=== PATIENT | male | born 2000 ===

== ENCOUNTER 2022-03-14 19:09 | Emergency (ER) | payer SELFPAY ==
[2022-03-14 20:42] VITALS: BP 131/73
[2022-03-15] MEDS ORDERED: LIDOCAINE-MPF (1%) 10 MG/1 ML VIAL 5 ML INFILTRATI ONE (01:33)
[2022-03-15] MEDS ORDERED: TETANUS,DIPH,PERTUSS(ACELL) VACCINE 0.5 ML SYRINGE IM ONE (01:33)
[2022-03-15] MEDS ORDERED: HYDROcodone/ACETAMINOPHEN 5-325 MG TAB PO ONE (01:33)
[2022-03-15] MEDS ORDERED: cephALEXin 500 MG CAP PO ONE (01:33)
--- NOTE | 2022-03-15 01:40 | Emergency Department Report ---
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 There is no gross deformity bleeding was controlled by direct pressure self applied. Incident happened approximately 6 hours ago. Patient states his thumb was caught in metal storage cabinet door as it was slammed closed. Patient complains of 7/10 pain and throbbing. Pain is exacerbated by palpation and movement. Pain is relieved by nothing tried. Last tetanus is unknown. Patient arrived to ED via POV patient is alert oriented and amatory with steady gait there is no acute distress. - Related Data Previous Rx's Medication Instructions Recorded Last Taken Type HYDROcodone/APAP 5-325 [[place] 1 each PO Q6HR PRN #12 tablet 03/15/22 Unknown Rx 5-325 mg TAB] cephALEXin [Keflex] 500 mg PO Q8HR 7 Days #21 cap 03/15/22 Unknown Rx Allergies Allergy/AdvReac Type Severity Reaction Status Date / Time No Known Allergies Allergy Verified 03/14/22 20:44 ED Review of Systems ROS: Stated complaint: LT THUMB CUT Other details as noted in HPI Constitutional: denies: chills, fever Eyes: denies: eye pain, eye discharge, vision change ENT: denies: ear pain, throat pain Respiratory: denies: cough, shortness of breath, wheezing Cardiovascular: denies: chest pain, palpitations Endocrine: no symptoms reported Gastrointestinal: denies: abdominal pain, nausea, diarrhea Genitourinary: denies: urgency, dysuria Musculoskeletal: other (Left distal thumb laceration) Skin: other (Distal thumb laceration as above). denies: rash, lesions Neurological: denies: headache, weakness, paresthesias Psychiatric: denies: anxiety, depression Hematological/Lymphatic: denies: easy bleeding, easy bruising ED Past Medical Hx - Medications Home Medications: Home Medications Medication Instructions Recorded Confirmed Last Taken Type HYDROcodone/APAP 5-325 [[place] 1 each PO Q6HR PRN #12 tablet 03/15/22 Unknown Rx 5-325 mg TAB] cephALEXin [Keflex] 500 mg PO Q8HR 7 Days #21 cap 03/15/22 Unknown Rx ED Physical Exam - General Limitations: No Limitations General appearance: alert, in no apparent distress - Head Head exam: Present: normocephalic, normal inspection - Eye Eye exam: Present: PERRL, EOMI Pupils: Present: normal accommodation - ENT ENT exam: Present: mucous membranes moist - Neck Neck exam: Present: normal inspection, full ROM. Absent: tenderness - Respiratory Respiratory exam: Present: normal lung sounds bilaterally. Absent: respiratory distress, wheezes - Cardiovascular Cardiovascular Exam: Present: regular rate, normal rhythm. Absent: systolic murmur, diastolic murmur, rubs, gallop - GI/Abdominal GI/Abdominal exam: Present: soft, normal bowel sounds - Rectal Rectal exam: Present: deferred - Extremities Exam Extremities exam: Present: full ROM, normal capillary refill - Expanded Upper Extremity Exam Left Hand Wrist exam: Present: full ROM, tenderness, laceration (Left distal thumb laceration approximately 2 cm across nail , flexion and extension intact, distal pulses intact, there is no gross deformity), nail avulsion. Absent: ecchymosis, deformity, crepidus, dislocation, erythema, amputation, subungual hematoma Neuro motor exam: Present: wrist extension intact, thumb opposition intact, thumb IP flexion intact, thumb adduction intact, fingers 2-5 abduction intact Neurosensory exam: Present: radial nerve intact Vascular: Present: normal capillary refill - Back Exam Back exam: Present: normal inspection, full ROM. Absent: tenderness - Neurological Exam Neurological exam: Present: alert, oriented X3, CN II-XII intact, reflexes normal. Absent: motor sensory deficit - Expanded Neurological Exam Expanded Patient oriented to: Present: person, place, time Motor strength exam: RUE: 5, LUE: 5, RLE: 5, LLE: 5 DTR: bicep (R): 1+, bicep (L): 1+ Best Eye Response (Tae): (4) open spontaneously Best Motor Response (Tae): (6) obeys commands Best Verbal Response (Tae): (5) oriented [place] Total: 15 - Psychiatric Psychiatric exam: Present: normal affect, normal mood - Skin Skin exam: Present: warm, dry, intact, normal color. Absent: rash ED Course Vital Signs 03/14/22 20:16 Temperature 97.8 F Pulse Rate 62 Respiratory 8 L Rate Blood Pressure 131/73 O2 Sat by Pulse 99 Oximetry - Laceration /Wound Repair Left Posterior Distal Finger Wound Location: upper extremity Wound Length (cm): 2 Wound's Depth, Shape: superficial Wound Explored: clean Irrigated w/ Saline (ccs): 40 Betadine Prep?: Yes Anesthesia: 1% Lidocaine Volume Anesthetic (ccs): 3 (Anesthesia was achieved) Wound Debrided: None required Suture Size/Type: 3:0, proline Number of Sutures: 5 Layer Closure?: No Sterile Dressing Applied?: Yes Progress: Left distal forearm laceration with partial nail avulsion with subungual hematoma site cleaned with Betadine solution anesthesia 1% lidocaine x3 cc anesthesia is achieved via digital block. Wound closed with 3-0 Prolene times 5 sutures. Wound well aligned , all bleeding is controlled sterile Betadine dressing applied x-ray noted with distal phalanx fracture nondisplaced. Patient given wound care instructions including follow-up in 1 to 2 days with orthopeadics. Patient verbalized agreement and understanding with same. Range of motion remains intact there is no nerve muscle or tendon damage. ED Medical Decision Making - Radiology Data Radiology results: report reviewed, image reviewed LEFT HAND 2 VIEWS INDICATION / CLINICAL INFORMATION: left thumb laceration COMPARISON: None available. FINDINGS: BONES and JOINT(S): There is an acute fracture of the tip of the distal phalanx of the thumb. No dislocation. No significant arthritis. SOFT TISSUES: A laceration is noted distally along the thumb with associated mild edema. No radiopaque foreign body or other significant abnormality. ADDITIONAL FINDINGS: None. IMPRESSION: Left thumb laceration with an acute fracture of the tip of the distal phalanx of the left thumb. Signer Name: Ivan Mckeon MD Signed: 03/15/2022 2:19 AM Workstation Name: [id number] Transcribed By: DAVID Dictated By: Ivan Mckeon MD Electronically Authenticated By: Ivan Mckeon MD Signed Date/Time: 03/15/22218 DD/ 7 TD/TT: - Medical Decision Making Distal open thumb laceration fracture, see's suture repair note. Fracture is nondisplaced laceration repaired no nerve muscle or tendon damage. Plan DC to home with prescriptions. Follow-up with orthopedics. Wound care as directed return to emergency department should symptoms worsen. Patient given tetanus, Importance of antibiotic therapy, explained importance of follow-up with orthopedics tomorrow. All bleeding controlled sterile dressings intact distal pulses intact range of motion intact to direct opposition. Patient DC'd in stable condition at this time. Critical care attestation.: If time is entered above; I have spent that time in minutes in the direct care of this critically ill patient, excluding procedure time. ED Disposition Clinical Impression: Fracture of distal phalanx of thumb Qualifiers: Encounter type: initial encounter Fracture type: open Fracture alignment: nondisplaced Laterality: left Qualified Code(s): S62.525B - Nondisplaced fracture of distal phalanx of left thumb, initial encounter for open fracture Thumb laceration Qualifiers: Encounter type: initial encounter Damage to nail status: with damage Foreign body presence: without foreign body Laterality: left Qualified Code(s): S61.112A - Laceration without foreign body of left thumb with damage to nail, initial encounter Disposition: HOME / SELF CARE / HOMELESS Is pt being admited?: No Does the pt Need Aspirin: No Condition: Stable Instructions: Thumb Fracture, Sutures, [place], or Adhesive Wound Closure Additional Instructions: Take medication as prescribed, follow-up with orthopedics surgery tomorrow as directed. Wound care as directed. Return to emergency department should symptoms worsen. Or symptoms of infection as discussed. Prescriptions: cephALEXin [Keflex] 500 mg PO Q8HR 7 Days #21 cap HYDROcodone/APAP 5-325 [[place] 5-325 mg TAB] 1 each PO Q6HR PRN #12 tablet PRN Reason: Pain Referrals: JAIME MOREJON MD [Staff Physician] - 24 Hours Forms: Work/School Release Form(ED) Time of Disposition: 02:43
--- NOTE | 2022-03-15 02:24 | XRay Report ---
LEFT HAND 2 VIEWS INDICATION / CLINICAL INFORMATION: left thumb laceration COMPARISON: None available. FINDINGS: BONES and JOINT(S): There is an acute fracture of the tip of the distal phalanx of the thumb. No disl ocation. No significant arthritis. SOFT TISSUES: A laceration is noted distally along the thumb with associated mild edema. No radiopaqu e foreign body or other significant abnormality. ADDITIONAL FINDINGS: None. IMPRESSION: Left thumb laceration with an acute fracture of the tip of the distal phalanx of the left thumb. Signer Name: Ivan Mckeon MD Signed: 03/15/2022 2:19 AM Workstation Name: [id number]
== END 2022-03-15 03:42 | disposition home or self-care (01) ==
LOC: ED 19:09
DX: S62.522A Displaced fracture of distal phalanx of left thumb, initial encounter for closed fracture (principal); S61.012A Laceration without foreign body of left thumb without damage to nail, initial encounter; W22.8XXA Striking against or struck by other objects, initial encounter; Y93.89 Activity, other specified; Y92.89 Other specified places as the place of occurrence of the external cause; Y99.8 Other external cause status
CPT/HCPCS: 12001; 73120; 90471; 90715; 99283; J3490